=== PATIENT | female | born 1960 | race Caucasian/White ===

== ENCOUNTER 2016-10-07 16:19 | Emergency (ER) | payer OTHER ==
[2016-10-07 16:22] VITALS: BP 161/76
--- NOTE | 2016-10-07 16:37 | ED UPPER/LOWER EXTREMITY COMPL ---
History of Present Illness General Chief Complaint: Fall Stated Complaint: BIBA FALL, LEFT ANKLE PAIN Source: patient Exam Limitations: no limitations Vital Signs & Intake/Output Vital Signs & Intake/Output Vital Signs Date Time Temp Pulse Resp B/P B/P Pulse O2 O2 Flow FiO2 Mean Ox Delivery Rate 10/07 1622 96.9 65 18 161/76 100 Room Air Allergies Coded Allergies: aspirin (ULCERATIVE COLITIS 10/07/16) Reconcile Medications Atorvastatin Calcium 40 MG TABLET 1 TAB PO DAILY CHOLESTEROL (Reported) Mesalamine (Delzicol) 400 MG CAPSULE. 1 TAB PO 4XDAILY GI (Reported) Oxycodone HCl/Acetaminophen (Percocet 5-325 MG Tablet) 5 MG-325 MG TABLET 1 TAB PO BID PRN PAIN Triage Note: BIBA FROM HOME C/O LEFT ANKLE PAIN AFTER MECHANICAL SLIP/FALL ON DECK STAIRS. PT REMEMBERS ENTIRE FALL, SLIPPED ON DECK AND LANDED IN PLANTS. DENIES HEAD STRIKE/LOC/BLOOD THINNERS. MILD SWELLING NOTED LEFT ANKLE, PAIN IS CONFINED TO ANKLE, +CMS IN FOOT. PA STUDENT AT BEDSIDE ON ARRIVAL FOR EVAL. Triage Nurses Notes Reviewed? yes HPI: This patient is a 55-year-old female who presented to the emergency department today for dilation of left ankle pain. The patient reported that she was walking down some steps and slipped down 2 or 3 stairs. She denied head strike or loss of consciousness. She reported that her left ankle twisted underneath her. She reported that she was that it swelled immediately. She was able to crawl to her freezer to get an ice pack to ice the area. The patient is unable to wait on the area. Pain is up to 7 out of 10, is throbbing, nonradiating. It is located on the outside of her ankle. No numbness or tingling in her extremity. No knee pain or hip pain. Past History Travel History Traveled to [place] past 21 day No Medical History Any Pertinent Medical History? see below for history Surgical History Surgical History: non-contributory Psychosocial History What is your primary language Guyanese Family History Hx Contributory? No Review of Systems Review of Systems Constitutional: Reports: no symptoms. EENTM: Reports: no symptoms. Respiratory: Reports: no symptoms. Cardiovascular: Reports: no symptoms. Gastrointestinal/Abdominal: Reports: no symptoms. Musculoskeletal: Reports: see HPI. Skin: Reports: no symptoms. Neurological/Psychological: Reports: no symptoms. All Other Systems: Reviewed and Negative Physical Exam Physical Exam General Appearance: well developed/nourished, no apparent distress, alert, awake Comments: Well-developed well-nourished person in no acute distress HEENT: Head normocephalic, moist mucous membranes Neck: Supple, no lymphadenopathy Back: Normal inspection Respiratory: No respiratory distress. Speaking in full sentences Left foot/ankle: Edema noted to the lateral malleolus. No overlying ecchymosis or erythema. Limited range of motion of the ankle due to pain. Tenderness to palpation over the lateral malleolus. No bony or muscular deformities appreciated. Dorsalis pedis and posterior tibialis pulses 2+ and strong. Unable to assess capillary refill due to nail kiswahili. Neuro: Alert and oriented x3 Psych: Mood affect normal, normal memory normal judgment. Skin: Warm and dry, no rash on exposed skin Progress Differential Diagnosis: arterial insufficiency, compartment syndrome, contusion, dislocation, gout, sprain, tendon injury Plan of Care: Orders Procedure Date/time Status XRY-ANKLE 3 OR MORE VIEWS L 10/07 163 Active Current Medications Sig/Percy Start time Last Medication Dose Stop Time Status Admin Acetaminophen 650 MG ONCE ONE 10/07 1644 UNVr (Tylenol) 10/07 1646 Diagnostic Imaging: Viewed by Me: Radiology Read. Discussed w/RAD: Radiology Read. Radiology Impression: PATIENT: BIANCA CARROLL PRESENT AGE: 55 PATIENT ACCOUNT NO: [id number] : 60 LOCATION: [facility] ORDERING PHYSICIAN: MODESTO GOMEZ PA-C SERVICE DATE: 10/07/16163 EXAM TYPE: RAD - XRY-ANKLE 3 OR MORE VIEWS L EXAMINATION: XR ANKLE, LEFT CLINICAL INFORMATION: Fall pain fracture. COMPARISON: None TECHNIQUE: AP, lateral, and mortise views of the left ankle. FINDINGS: There is soft tissue swelling laterally. There are small flecks of calcific density distal to the fibula which could reflect small avulsion fractures versus dystrophic calcification related to prior ligamentous injury. The mortise remains intact. The bones and joints are normal. There is an effusion of the tibiotalar joint IMPRESSION: Soft tissue swelling and joint effusion of the ankle. Possible several tiny avulsion fractures versus a dystrophic calcification related to old ligamentous injury laterally. DICTATED BY: CHASTITY FERREIRA MD DATE/TIME DICTATED:10/07/161658 CAMPUS WELLNESS COORDINATOR: JENNIFER DATE/TIME TRANSCRIBED:10/07/161658 CONFIDENTIAL, DO NOT COPY WITHOUT APPROPRIATE AUTHORIZATION. <Electronically signed in Other Vendor System> SIGNED BY: CHASTITY FERREIRA MD 10/07/16 [id number] Departure Departure Disposition: HOME OR SELF CARE Condition: Stable Clinical Impression Primary Impression: Ankle sprain Qualifiers: Encounter type: initial encounter Involved ligament of ankle: unspecified ligament Laterality: left Qualified Code: S93.402A - Sprain of unspecified ligament of left ankle, initial encounter Referrals: CRISTINE SLATER,TYRON (PCP/Family) WILLIE DEE MD Additional Instructions: Please use the pneumatic who provided to you for extra support of your ankle. Rest and elevate her ankle and possible. Apply ice to the affected area for 15- 20 minutes, 3-4 times a day. You will take [id number] ibuprofen for inflammation. Remain nonweightbearing until you follow up with the orthopedic physician. Use the crutches provided to you. Return for any worsening symptoms or concerns. Departure Forms: Customer Survey General Discharge Information Prescriptions: Current Visit Scripts Oxycodone HCl/Acetaminophen (Percocet 5-325 MG Tablet) 1 TAB PO BID PRN PAIN #10 TAB
[2016-10-07] MEDS ORDERED: DELZICOL400 M1 PO (16:42)
[2016-10-07] MEDS ORDERED: ATORVASTATIN CA40 M1 PO (16:42)
--- NOTE | 2016-10-07 17:05 | RADIOLOGY REPORT ---
EXAMINATION: XR ANKLE, LEFT CLINICAL INFORMATION: Fall pain fracture. COMPARISON: None TECHNIQUE: AP, lateral, and mortise views of the left ankle. FINDINGS: There is soft tissue swelling laterally. There are small flecks of calcific density distal to the fibula which could reflect small avulsion fractures versus dystrophic calcification related to prior ligamentous injury. The mortise remains intact. The bones and joints are normal. There is an effusion of the tibiotalar joint IMPRESSION: Soft tissue swelling and joint effusion of the ankle. Possible several tiny avulsion fractures versus a dystrophic calcification related to old ligamentous injury laterally.
[2016-10-07] MEDS ORDERED: PERCOCET 5-3251 EACH PO (17:20)
== END 2016-10-07 17:39 ==
LOC: ERH 16:19
DX: S93.402A Sprain of unspecified ligament of left ankle, initial encounter (principal); W10.9XXA Fall (on) (from) unspecified stairs and steps, initial encounter; Y92.9 Unspecified place or not applicable; Y93.9 Activity, unspecified
CPT/HCPCS: 73610-LT